=== PATIENT | male | born 1960 | race Caucasian/White ===

== ENCOUNTER 2021-11-10 12:21 | Inpatient (IN) | payer OTHER, SELFPAY ==
[2021-11-10] VITALS (17 sets, daily range): BP systolic 98–133; BP diastolic 38–57; PULSE 80–107; RESP 14–21; TEMP 36.1–36.6; O2SAT 92–100; BMI 20.3
--- NOTE | ~2021-11-10 | CT_ITS ---
EXAMINATION: CT brain wo con DATE: 11/10/2021 14:07 INDICATION: Trauma. Transient alteration of awareness. TECHNIQUE: Computed tomography (CT) of the head was performed without intravenous contrast. The mA wa s adjusted according to patient size. Iterative reconstruction technique was employed. Exam dose: 68 1.00 mGy-cm total exam DLP. COMPARISON: None FINDINGS: No intracranial mass lesion or hemorrhage or cerebrovascular accident, midline shift or mas s effect effect is detected. There is moderately prominent central and cortical cerebral atrophy. Bilateral carotid siphon internal carotid artery calcifications. There is nonspecific diminished atte nuation of the cerebral white matter, likely due to chronic small vessel ischemic changes. No subdural or epidural hematoma is detected. The mastoid air cells and paranasal sinuses are normally developed and aerated. No fracture or bone destruction of the cranial vault. IMPRESSION: Cirrhosis and chronic small vessel ischemic changes of the cerebral white matter Moderately prominent central and cortical cerebral atrophy No acute intracranial finding Reviewed, dictated and finalized at [facility]. Reviewed, dictated and finalized at location [facility]. IMPRESSION: Cirrhosis and chronic small vessel ischemic changes of the cerebra l white matter Moderately prominent central and cortical cerebral atrophy No acute intracranial finding
--- NOTE | ~2021-11-10 | XR_ITS ---
EXAM: XR abdomen NG/feed tube insert DATE: 11/10/2021 15:43 HISTORY: NG TUBE PLACEMENT . COMPARISON: CT abdomen and pelvis, same date. FINDINGS: Clear lung bases. NG tube, tip and side port projecting over the stomach. Multiple loops o f dilated small bowel. No organomegaly. No abnormal abdominal calcification. Regional bones and soft tissues normal for age. IMPRESSION: NG tube, in good position. Small bowel obstruction or ileus. Reviewed, dictated and finalized at location [facility].
--- NOTE | ~2021-11-10 | CT_ITS ---
EXAMINATION: CT chest abdomen pelvis wo con DATE: 11/10/2021 14:07 INDICATION: Abdominal pain, distention. Hernia. TECHNIQUE: Computed tomography (CT) of the chest, abdomen, and pelvis was performed without intraveno us contrast. Automated exposure control and iterative reconstruction technique were employed. Exam do se: 841.04 mGy-cm total exam DLP. COMPARISON: None FINDINGS: CHEST CT: Heart size is within normal limits. Trace pericardial fluid. There is thoracic aortic and great vessel calcification. No thoracic aortic aneurysm. No hilar or med iastinal mass lesion or lymphadenopathy. There are emphysematous changes of the lungs There is mild atelectasis at the left lung base, left lower lobe. ABDOMEN/PELVIS CT: There is prominent ascites. There appears to be surface nodularity of liver suggesting cirrhosis. Nor mal splenic size. No apparent hepatic, splenic, pancreatic, and adrenal or renal space-occupying mass lesion is evident on this limited noncontrast examination. Approximately 2 x 4 mm nonobstructing right renal calculus. No ureteral calculus or hydroureteronephr osis. The urinary bladder is unremarkable. Prostate calcification. There is a large fat and fluid containing right inguinal hernia and smaller left fat and fluid contai carli left inguinal hernia. Fluid distended umbilical hernia. Small sliding hiatal hernia. Multiple dilated small bowel loops with air-fluid levels are noted in the colon is relatively evacuat ed. Differential diagnosis includes distal small bowel obstruction versus adynamic ileus . Consider small bowel series Normal caliber and calcification of the abdominal aorta and iliac arteries. No intraperitoneal or ret roperitoneal or pelvic mass lesion or adenopathy is noted. Osteosclerotic 7.5 mm lesion of L1 vertebral body, probably a bone island considering the lack of oth er sclerotic lesions. Differential diagnosis includes osteosclerotic metastasis from prostate cancer. IMPRESSION: Cirrhosis, ascites Small bowel dilatation measuring up to 3.5 cm diameter, with air-fluid levels, suggesting distal smal l bowel obstruction or adynamic ileus. Consider small bowel series Emphysema Mild atelectasis at left lung base, left lower lobe Nonobstructing right renal calculus Fluid containing umbilical and bilateral inguinal hernias Reviewed, dictated and finalized at [facility]. Reviewed, dictated and finalized at location A. IMPRESSION: Cirrhosis, ascites Small bowel dilatation measuring up to 3.5 cm diameter, with air-fluid levels, suggesting distal small bowel obstruction or adynamic ileus. Consider small bow el series Emphysema Mild atelectasis at left lung base, left lower lobe Nonobstructing right renal calculus Fluid containing umbilical and bilateral inguinal hernias
--- NOTE | 2021-11-10 12:26 | PC.NURSE ---
1 liter NS initiated en route per EMS this RN will continue IV fluids.
--- NOTE | 2021-11-10 12:29 | ED.AMS ---
HPI - Altered Mental Status General Chief Complaint: Abdominal Pain Stated Complaint: decreased loc History of Present Illness HPI narrative: pt sent from EMS called from family normal accu check but unknown down time they thought he was just sleeping on the couch but finally went to wake him up today and sluggish to respond ? abd pain h/o hernia pt will respond but slow can't elaborate on history looks dry, soft bp for ems, has yellow tint to skin ? etoh/liver issues no other trauma or history given at scene Related Data Home Medications Medication Instructions Recorded Confirmed folic acid 1 mg tablet 1 mg PO DAILY 11/10/21 spironolactone 50 mg tablet 50 mg PO QAM 11/10/21 Allergies Allergy/AdvReac Type Severity Reaction Status Date / Time No Known Allergies Allergy Verified 11/10/21 12:41 Review of Systems Constitutional: Comments: CONSTITUTIONAL: Denies fever, chills, or sweats. EYES: Denies visual changes, redness, or discharge. ENT: Denies rhinorrhea, congestion, sore throat, or otalgia. CARDIOVASCULAR: Denies chest pain, palpitations, or edema. RESPIRATORY: Denies cough or dyspnea. GASTROINTESTINAL: Denies abdominal pain, nausea, vomiting, or diarrhea. ? pain wiht his hernia GENITOURINARY: Denies dysuria or hematuria. SKIN: Denies rash or itching. MUSCULOSKELETAL: Denies back pain, joint pain, or myalgia. NEUROLOGIC: Denies headache, numbness, or weakness. aloc PSYCHIATRIC: Denies anxiety or depression. Exam Const: Other: APPEARANCE: thin ill appearing no pain in distress Head normocephalic atraumtaic. EYES: PERRLA/EOMI, conjunctivae very clear. NOSE: Normal no drainage EARS:TMS clear Geno Pro, with good light reflex. THROAT: Pharynx clear, no exudate. dry mouth NECK: Supple. No adenopathy, no masses. RESPIRATORY: Airway patent, repsirations nonlabored. Clear to auscultation bilaterally, no rales, rhonchi, wheezing. CARDIOVASCULAR: Regular rate and rhythm without murmurs rubs or gallops. ABDOMINAL: Soft, nontender, there is distention no ascites, no hepatosplenomegally has hernia at umbilicus with crusted skin from chronic rubbing on pants no s/s infection can reduce then comes back doesnt seem tender on exam, rectal normal tone, mucus only heme positive MUSCULOSKELETAl: Moves all extremities. Strenght/ROM intact, No edema, No calf tenderness. NEURO: awake, slow to respond good gag moving all extremities but won't always follow commands no focal deficits but globally weak. Cranial nerves II through XII intact. SKIN:: Warm, dry. mild jaundice no scleral icterus and poor tugor PSYCHIATRIC: Normal affect/mood, . Course Course Emergency Course: talked to Dr Corrales feels like pt can't be managed here with all issues so trying to find placement at another facility even though we already have a pt here waiting for gi slu/[facility] no bed for days which he is aware [facility] calling back at 1532 Reevaluation(s) Reevaluation #1: [facility] at 1603 put on wait list will call back tomorrow Reevaluation #2: [facility] calling back at 1600 Reevaluation #3: [facility] beds [facility], [facility], [facility], [facility], [facility] capacity placing on wait list at 1634 Additional Reevaluation(s): pt becoming more altered calling one family number with nurse more septic progression unlikely to survive or maybe even transfer calling dr andujar says could take to gi lab when more stable call surgery so calling them here and dr sethi back b/c very unlikely will get bed anywhere else dr Lily Ryder hepatology concerned about length transfer with instability needs scope there first pts sister Tatiana Dickinson just talked with me says for some time he's been saying doesn't want to deal with all his health problems anymore and was seeing a primary care doc but she doens't know who, she is a nurse, and knownig him and his [facility] struggles with copd, etoh, liver issues wants to make him comfortable doesnt think he wo
--- NOTE | 2021-11-10 12:42 | PC.NURSE ---
Nephew that lives with pt - Livan Nielson - [phone] pt had abd pain x 1 week, seen at urgent care yesterday, covid test negative. Pt got weaker as the night went on,pt went to bed, and was unable to be woken this morning. called 911.
[2021-11-10 12:49] LABS: Alveolar/Arterial O2 Gradient 43.8 mmHg; Base Excess ABG -3.4 mEq/l (+/-2.0); Fractional Inspired Oxygen 21 %; HCO3 ABG 19.2 mEq/l (22.0-26.0); Oxygen Content ABG 6.9 %vol (16.0-22.0); Oxyhemoglobin 92.6 % THb (90.0-100.0); PO2 ABG 77.9 mmHg (80.0-100.0); PO2 FiO2 Ratio Arterial Blood 3.71 %
[2021-11-10 12:51] LABS: Device ROOM AIR; Modified Allen's Test Pass; PCO2 ABG 23.4 mmHg (35.0-45.0); Site Drawn RIGHT RADIAL; Total Hemoglobin 5.2 g/dL (12.0-18.0); pH ABG 7.531 (7.350-7.450)
[2021-11-10 12:59] LABS: Basophils Percent Auto 0.1 % (0.2-1.2); Eosinophils Absolute Auto 0.1 K/mm3 (0-0.3); Eosinophils Percent Auto 0.4 % (0-4.4); Immature Granulocyte Absolute 0.44 K/mm3 (0.00-0.031); Immature Granulocyte Percent A 1.7 % (0-0.5); Lymphocytes Absolute Auto 1.48 K/mm3 (0.9-3.2); Lymphocytes Percent Auto 5.8 % (18.3-44.2); Mean Corpuscular HGB Conc 28.5 g/dl (32-36); Mean Corpuscular Hemoglobin 22.2 pg (26-34); Mean Corpuscular Volume 77.8 fl (80-100); Mean Platelet Volume 9.2 fl (7.4-10.4); Monocytes Absolute Auto 1.9 K/mm3 (0.1-0.6); Monocytes Percent Auto 7.2 % (2.6-8.5); Neutrophils Absolute Auto 21.8 K/mm3 (1.3-6.7); Neutrophils Percent Auto 84.8 % (45.5-73.1); Nucleated Red Blood Cells Perc 0.1 % (0.0-0.2); Platelet Count Result 366 k/mm3 (150-375); Red Blood Count 2.03 M/mm3 (4.6-6.20); Red Cell Distribution Width 23.5 % (11.5-14.5); White Blood Count 25.7 K/mm3 (4.5-10.0)
[2021-11-10] MEDS: SODIUM CHLORIDE 0.9% IV 2,300 ML/1,000 ML BAG 999 ML IV CONT ×2 (13:01→13:37)
[2021-11-10 13:02] LABS: Appearance Urine Clear (Clear); Bilirubin Urine 1+ (Negative); Blood Urine Negative (Negative); Glucose Urine UA Negative (Negative); Ketones Urine Negative (Negative); Leukocyte Esterase Ur Negative LEU/UL (Negative); Nitrate Urine Negative (Negative); Protein Urine Negative (Negative); Urobilinogen Urine 0.2 mg/dL (<2.0)
[2021-11-10 13:07] LABS: Hematocrit 15.8 % (42.0-52.0); Hemoglobin 4.5 g/dL (14.0-18.0)
[2021-11-10 13:08] LABS: Add Urine Microscopic? YES; Color Urine Dark Yellow (Yellow)
[2021-11-10 13:09] LABS: INR 2.4; Prothrombin Time 25.5 Seconds (11.1-14.7)
[2021-11-10 13:09] LABS: Glucose Point of Care 110 mg/dl (65-105)
[2021-11-10 13:10] LABS: Ammonia 50 umol/L (9-30); Lactic Acid Reflex 4.1 mmol/L (0.7-2.0); Partial Thromboplastin Time 36.4 SECONDS (22.3-36.8)
[2021-11-10 13:12] LABS: Bacteria Urine Trace /hpf; Ethanol < 10 mg/dL (<10); Mucus Urine Rare /lpf; RBC Urine 0-2 /hpf (0-2); WBC Urine 0-3 /hpf
[2021-11-10 13:14] LABS: Alanine Aminotransferase 19 U/L (6-50); Albumin Level 2.4 g/dL (3.5-5.1); Alkaline Phosphatase 150 U/L (38-126); Anion Gap 11 mmol/L (8-16); Aspartate Amino Transferase 60 U/L (17-59); Bilirubin,Total 4.2 mg/dL (0.2-1.3); Blood Urea Nitrogen 23 mg/dL (9-20); CRP 4.4 mg/dL (<1.0); Calcium 6.9 mg/dL (8.4-10.2); Carbon Dioxide 19 mmol/L (22-30); Chloride 88 mmol/L (98-107); Estimated CRCL calculation 27 ml/min; Estimated Glomerular Filt Rate 23; Glucose 107 mg/dL (65-110); Potassium 4.9 mmol/L (3.4-5.0); Sodium 118 mmol/L (137-145)
[2021-11-10 13:14] LABS: Amphetamine Screen Urine Negative (Negative); Barbiturate Screen Urine Negative (Negative); Benzodiazepines Screen Urine Negative (Negative); Cannabinoid Screen Urine Negative (Negative); Cocaine Screen Urine Negative (Negative); Methadone Screen Urine Negative (Negative); Opiate Screen Urine Negative (Negative); Phencyclidine Screen Urine Negative (Negative)
[2021-11-10 13:26] LABS: Anisocytosis 2+ (NORMAL); Burr Cells 2+ (NORMAL); Hypochromasia 2+ (NORMAL); Macrocytosis 1+ (NORMAL); Platelet Estimate Adequate (Adequate); Poikilocytosis 2+ (NORMAL)
[2021-11-10 13:27] LABS: Schistocytes 1+ (NORMAL)
[2021-11-10 13:31] LABS: Magnesium 1.9 mg/dL (1.6-2.3)
[2021-11-10 13:32] LABS: Troponin I < 0.012 ng/mL (0.000-0.034)
[2021-11-10 13:36] LABS: Influenza A QL RT-PCR Negative (Negative); Influenza B QL RT-PCR Negative (Negative); SARS-CoV-2 RNA PCR Negative
[2021-11-10 14:27] LABS: Free T4 Free Thyroxine Reflex 0.99 ng/dL (0.78-2.19)
[2021-11-10] MEDS: LEVOTHYROXINE SODIUM INJ 100 MCG/5 ML VIAL 50 MCG IV PUSH (14:28)
[2021-11-10] MEDS: LACTULOSE ENEMA 200 GM/1,000 ML ENEMA RECTAL (14:30)
--- NOTE | 2021-11-10 14:38 | PC.NURSE ---
Pt contact Livan called by this RN and asked for consent of blood transfusion. Consent given and 2nd RN Suzetet verified.
--- NOTE | 2021-11-10 14:40 | ECG_ITS ---
Rate 105 OR 180 QRSd 92 QT 350 QTc 463 --[place]-- P 6 QRS 7 T 3 SINUS TACHYCARDIA CANNOT RULE OUT SEPTAL INFARCT, AGE INDETERMINATE BASELINE ARTIFACT- I, II, III, AVR, AVL, AVF, V1-V6 ABNORMAL ECG Electronically Signed On 11-13-2021 9:02:07 CDT by Bereket EDWARDS
[2021-11-10] MEDS: SODIUM CHLORIDE 0.9% IV 250 ML 30 ML IV CONT (14:50)
[2021-11-10 15:08] LABS: Total Triiodothyronine (T3) 0.43 NG/ML (0.97-1.69)
[2021-11-10] MEDS: TUBING, BLOOD PLUM PUMP TUBING 1 EACH XX (15:31)
[2021-11-10 15:52] LABS: Reflex Lactic Acid Yes or No Add Lactic
--- NOTE | 2021-11-10 16:32 | PC.NURSE ---
1513 - [facility] N/A for Liver 1515 [facility] - 5 day bed wait 1517 [facility] - N/A 1519 [facility] 1539 [facility] - N/A 1550 [facility] N/A 1552 [facility] - N/A 1614 [facility] - N/A 1620 [facility]
[2021-11-10 16:38] LABS: Lactic Acid 4.4 mmol/L (0.7-2.0)
--- NOTE | 2021-11-10 17:25 | PM.IMHP ---
H&P: HPI History of Present Illness Date/Time: Patient requires inpatient monitoring with expected length of stay to exceed 2 midnights for management of care. 11/10/21 17:25 Chief Complaint: Decreased level of consciousness Narrative: Mr. Nielson is a 60-year-old gentleman who was brought to emergency room via EMS after family called when they were unable to wake patient up. Patient was laying on the couch and the family thought that he was sleeping and then they attempted to wake him up and they were unable to do so. I am unable to obtain any type of history from patient secondary to clinical condition. Per emergency room records patient has a significant history of alcohol abuse and COPD. Patient's family states that patient had followed up with a primary care provider 1 point time, but he refused to tell them who. Upon evaluation in emergency room patient was noted to have a small-bowel obstruction NG tube was placed and patient had a large return of bloody emesis. Patient was also noted to be hyponatremic with elevated liver enzymes and elevated ammonia level. Patient was also noted to have an elevated coagulation panel. Initially patient was to be transferred to an outside facility, but after speaking with the family patient's is to be made comfort measures only. Review of Systems Review of Systems: Unable to obtain any type of review of systems from patient secondary to clinical condition patient being unresponsive. [facility] Past Medical History Medical History (Updated 11/10/21 @ 21:49 by Paty Christopher APRN) Alcohol abuse COPD (chronic obstructive pulmonary disease) Surgical History Surgical History (Updated 11/10/21 @ 21:50 by Paty Christopher APRN) Surgical history unknown Meds Home Medications and Allergies Home Medications Medication Instructions Recorded Confirmed Type folic acid 1 mg tablet 1 mg PO DAILY 11/10/21 History spironolactone 50 mg tablet 50 mg PO QAM 11/10/21 History Allergies Allergy/AdvReac Type Severity Reaction Status Date / Time No Known Allergies Allergy Verified 11/10/21 12:41 Vital Signs Vital Signs - 24 hr 11/10/21 12:16 11/10/21 13:03 11/10/21 13:32 Temperature 36.4 C L Pulse Rate 86 93 95 Respiratory Rate 19 18 18 Blood Pressure 114/46 L 107/38 L 108/42 L Pulse Oximetry 97 100 97 Oxygen Delivery Room Air 11/10/21 14:50 11/10/21 15:28 11/10/21 15:07 Temperature 36.1 C L 36.5 C Pulse Rate 107 H 104 H 104 H Respiratory Rate 21 H 20 20 Blood Pressure 133/55 L 122/45 L 101/42 L Pulse Oximetry 99 98 98 Oxygen Delivery 11/10/21 16:21 11/10/21 16:37 11/10/21 16:48 Temperature 36.6 C Pulse Rate 95 93 99 Respiratory Rate 20 19 18 Blood Pressure 116/47 L 102/45 L 107/53 L Pulse Oximetry 97 96 97 Oxygen Delivery 11/10/21 17:18 Temperature 36.2 C L Pulse Rate 93 Respiratory Rate 19 Blood Pressure 99/46 L Pulse Oximetry 96 Oxygen Delivery Exam Narrative: Constitutional: Patient is a frail-appearing 60-year-old gentleman who was unresponsive to verbal stimuli, but will respond to painful stimuli. HEENT: Moist mucous membranes. No scleral icterus. No lymphadenopathy. Patient has NG noted Neck: No carotid bruits noted no JVD noted Lungs: Lung sounds are clear to auscultation bilaterally. No accessory muscle use. No rhonchi, rales, or wheezes noted. Cardiovascular: Apical pulse is regular rate and rhythm. S1-S2 noted, no S3 or S4 noted. No gallops, murmurs, or rubs noted. Abdomen: Soft and round. No palpable masses. Extremities: No edema. Nontender. Skin: No rashes or lesions. Warm and dry. Skin is intact. Neurological: Patient is unable to follow any type of commands and unable to evaluate neurological status. H&P: Results Labs Labs: Short CBC 11/10/21 Range/Units 12:41 WBC 25.7 H (4.5-10.0) K/mm3 Hgb 4.5 L* (14.0-18.0) g/dL Hct 15.8 L* (42.0-52.0) % Plt Count 366 (150-375) k/m
[2021-11-10] MEDS: SODIUM CHLORIDE 0.9% IV 100 ML 50 ML (17:27)
[2021-11-10] MEDS: TUBING, BLOOD SET 1 EACH XX (17:27)
--- NOTE | 2021-11-10 19:15 | PC.NURSE ---
Assumed care of pt at this time. Pt upright on stretcher, responsive to painful stimuli.
--- NOTE | 2021-11-10 19:37 | PC.NURSE ---
Attempted to give report to [address] [place] [address] at this time. Receiving RN is in a pts room, will call back when available.
--- NOTE | 2021-11-10 20:20 | ADMGEN ---
This patient, Marciano Nielson, was admitted to Medical Room 346-01. Patient/family oriented to hospital policies and general routines including ID bracelet, bed and alarms, visiting hours, pain management, procedures, bathroom and other care routines, personal items, smoking policy, room service/diet, and visiting hours. Information on how to activate the Rapid Response Team has been discussed. Patient/Family are encouraged to report perceived risks to care and to ask questions if they do not understand what they are told or what they should do.
[2021-11-11] MEDS: LORazepam INJ (*CRX) 2 MG/ML VIAL 1 MG IV PUSH ×2 (00:29→11:23)
[2021-11-11] MEDS: MORPHINE SULFATE (*CRX) 2 MG/ML INJ IV PUSH ×2 (03:11→07:36)
[2021-11-11 05:30] VITALS: BP 115/55; PULSE 88; RESP 16; TEMP 36.5; O2SAT 94
--- NOTE | 2021-11-11 08:13 | PM.IMPN ---
Progress Note: A&P Assessment and Plan (1) Septic shock: Code(s): A41.9 - Sepsis, unspecified organism; R65.21 - Severe sepsis with septic shock Status: Acute (2) SBO (small bowel obstruction): Code(s): K56.609 - Unspecified intestinal obstruction, unspecified as to partial versus complete obstruction Status: Acute (3) Altered mental status: Code(s): R41.82 - Altered mental status, unspecified Status: Acute (4) GI bleed: Code(s): K92.2 - Gastrointestinal hemorrhage, unspecified Status: Acute (5) Anemia: Code(s): D64.9 - Anemia, unspecified Status: Acute (6) Acute hepatic encephalopathy: Code(s): K72.00 - Acute and subacute hepatic failure without coma Status: Acute (7) Acute renal failure (ARF): Code(s): N17.9 - Acute kidney failure, unspecified Status: Acute (8) Elevated liver enzymes: Code(s): R74.8 - Abnormal levels of other serum enzymes Status: Acute (9) Acute hyponatremia: Code(s): E87.1 - Hypo-osmolality and hyponatremia Status: Acute (10) Hypothyroidism: Code(s): E03.9 - Hypothyroidism, unspecified Status: Acute Plan Patient was found unresponsive at home and brought to emergency room for evaluation. Imaging revealed small-bowel obstruction. NG tube was placed that returned bloody emesis. He was profoundly anemic. Was tachycardic with elevated white count and lactic acidosis consistent with sepsis. Had an elevated ammonia level. Family decided not to proceed with further intervention. Patient was admitted for comfort measures. He did receive 2 units of packed red blood cell. NG tube remains in place. Discussed with family in the room. They were agreeable to hospice. Hospice consult has been placed. Family is also agreeable to starting a morphine drip. There was concern about urine retention so will place Dickinson catheter. Will continue comfort care only. Patient is DNR. Subjective Date/time seen: 11/11/21 08:13 Review of Systems Review of Systems: ROS unobtainable: Yes unobtainable due to mental status Exam Narrative: AF 97.7 115/55 88 16 94% ra Gen -thin chronically ill-appearing male lying semi recumbent HEENT -NG-tube secured with thin black fluid in tubing. Chest -lungs clear anteriorly CV -regular rate and rhythm Abd -soft. Protuberant. Umbilical hernia that is herniated outward with large black dried eschar covering the top. +BS. Rectal tube in place with light brown stool noted Ext - No pedal edema Neuro - unresponsive. moans at times Skin - dry. Multiple telangiectasias Objective Data Vital Signs Vital Signs: Vital Signs - 24 hr 11/10/21 12:16 11/10/21 13:03 11/10/21 13:32 Temperature 97.5 F L Pulse Rate 86 93 95 Respiratory Rate 19 18 18 Blood Pressure 114/46 L 107/38 L 108/42 L Pulse Oximetry 97 100 97 Oxygen Delivery Room Air 11/10/21 14:50 11/10/21 15:28 11/10/21 15:07 Temperature 97 F L 97.7 F Pulse Rate 107 H 104 H 104 H Respiratory Rate 21 H 20 20 Blood Pressure 133/55 L 122/45 L 101/42 L Pulse Oximetry 99 98 98 Oxygen Delivery 11/10/21 16:21 11/10/21 16:37 11/10/21 16:48 Temperature 97.8 F Pulse Rate 95 93 99 Respiratory Rate 20 19 18 Blood Pressure 116/47 L 102/45 L 107/53 L Pulse Oximetry 97 96 97 Oxygen Delivery 11/10/21 17:18 11/10/21 17:34 11/10/21 17:34 Temperature 97.1 F L 97.2 F L 97.2 F L Pulse Rate 93 81 92 Respiratory Rate 19 18 18 Blood Pressure 99/46 L 116/53 L 101/52 L Pulse Oximetry 96 98 98 Oxygen Delivery 11/10/21 17:54 11/10/21 18:20 11/10/21 19:20 Temperature 97.2 F L Pulse Rate 91 87 Respiratory Rate 20 17 Blood Pressure 116/53 L 115/50 L 122/57 L Pulse Oximetry 98 98 Oxygen Delivery 11/10/21 19:35 11/10/21 20:54 11/11/21 05:30 Temperature 97.8 F 97.7 F Pulse Rate 87 80 88 Respiratory Rate 18 14 16 Blood Pressure 111/56 L 98/56 L 115/55 L Puls
[2021-11-11] MEDS: MORPHINE SULFATE INJ (*CRX) 50 MG in SODIUM CHLORIDE 0.9% IV 95 ML IV CONT (09:22)
[2021-11-11 15:30] VITALS: BP 109/49; PULSE 94; RESP 16; TEMP 35.8; O2SAT 90
--- NOTE | 2021-11-11 16:17 | PM.DS ---
DS: Admitting Diagnosis Discharge Date 11/11/21 Admitting Diagnosis Unresponsive DS: Discharge Diagnosis Discharge Diagnosis (1) Septic shock: Code(s): A41.9 - Sepsis, unspecified organism; R65.21 - Severe sepsis with septic shock Status: Acute (2) SBO (small bowel obstruction): Code(s): K56.609 - Unspecified intestinal obstruction, unspecified as to partial versus complete obstruction Status: Acute (3) Altered mental status: Code(s): R41.82 - Altered mental status, unspecified Status: Acute (4) GI bleed: Code(s): K92.2 - Gastrointestinal hemorrhage, unspecified Status: Acute (5) Anemia: Code(s): D64.9 - Anemia, unspecified Status: Acute (6) Acute hepatic encephalopathy: Code(s): K72.00 - Acute and subacute hepatic failure without coma Status: Acute (7) Acute renal failure (ARF): Code(s): N17.9 - Acute kidney failure, unspecified Status: Acute (8) Elevated liver enzymes: Code(s): R74.8 - Abnormal levels of other serum enzymes Status: Acute (9) Acute hyponatremia: Code(s): E87.1 - Hypo-osmolality and hyponatremia Status: Acute (10) Hypothyroidism: Code(s): E03.9 - Hypothyroidism, unspecified Status: Acute DS: Summary Hospital Course Reason for hospitalization: 60yo male with alcohol abuse and COPD brought in to the ED after being found unresponsive. Please see H&P for details. Hospital Course: Patient was found unresponsive at home and brought to emergency room for evaluation. Imaging revealed small-bowel obstruction and cirrhosis with ascites. NG tube was placed that returned bloody emesis. He was profoundly anemic. Was tachycardic with elevated white count and lactic acidosis consistent with sepsis. Had an elevated ammonia level. Family decided not to proceed with further intervention. Patient was admitted for comfort measures. He did receive 2 units of packed red blood cell. NG tube remains in place. Discussed with family in the room. They were agreeable to hospice. Hospice consult was placed. Family was also agreeable to starting a morphine drip which was done. Patient is DNR. Patient transferred to hospice care on 11/11/21. Status at Discharge Cognitive/behavioral status at discharge: Critical Time Spent with Patient Time attestation: Total time spent providing and/or coordinating discharge services: 34 minutes Time spent: Greater than 30 minutes Exam Narrative: AF 97.7 115/55 88 16 94% ra Gen -thin chronically ill-appearing male lying semi recumbent HEENT -NG-tube secured with thin black fluid in tubing. Chest -lungs clear anteriorly CV -regular rate and rhythm Abd -soft. Protuberant. Umbilical hernia that is herniated outward with large black dried eschar covering the top. +BS. Rectal tube in place with light brown stool noted Ext - No pedal edema Neuro - unresponsive. moans at times Skin - dry. Multiple telangiectasias DS: Data Data Completed and Pending Labs on day of discharge: Labs from last 24 hours 11/10/21 11/10/21 16:18 13:19 Lactic Acid 4.4 H* Blood Type A Positive Antibody Screen Negative Crossmatch See Detail Preliminary micro results at discharge 11/10/21 12:41 Blood Culture - Preliminary Blood 11/10/21 12:41 Blood Culture - Preliminary Blood Discharge Plan Discharge Attending physician on discharge: Clemente Arevalo Discharging Clinician: Clemente Arevalo Anticipated Discharge Date/Time: 11/11/21 16:21 Patient Disposition: Hospice - Medical Facility Activity: as tolerated Diet: as tolerated Stand Alone Forms: General Discharge Information Discharge Medications: No Action folic acid 1 mg Tablet 1 mg PO DAILY spironolactone 50 mg Tablet 50 mg PO QAM Date of admission: 11/10/21 17:58 Primary Care Provider: UNKNOWN,DOCTOR Admitting Provider: Alexander
[2021-11-13 14:24] LABS: Glucose Point of Care 128 mg/dl (65-105)
== END 2021-11-11 16:46 | disposition hospice, inpatient (51) | DRG 871 ==
LOC: ANHED 17:57 → ANH3MED 18:47
PROVIDERS: Admitting Provider Internal Medicine; Emergency Provider Emergency Medicine; Visit Provider Internal Medicine
DX: A41.9 Sepsis, unspecified organism (principal); K72.00 Acute and subacute hepatic failure without coma; R65.21 Severe sepsis with septic shock; K92.2 Gastrointestinal hemorrhage, unspecified; E87.1 Hypo-osmolality and hyponatremia; K56.609 Unspecified intestinal obstruction, unspecified as to partial versus complete obstruction; N17.9 Acute kidney failure, unspecified; R18.8 Other ascites; R41.82 Altered mental status, unspecified; Z20.822 Contact with and (suspected) exposure to COVID-19; J44.9 Chronic obstructive pulmonary disease, unspecified; Z66 Do not resuscitate; D64.9 Anemia, unspecified; E03.9 Hypothyroidism, unspecified; Z79.899 Other long term (current) drug therapy; Z51.5 Encounter for palliative care; K74.60 Unspecified cirrhosis of liver
CPT/HCPCS: 36415; 36430; 36600; 51701; 70450; 71250; 74176; 80053; 80307; 81001; 82140; 82805; 82948; 83605; 83735; 84439; 84443; 84480; 84484; 85025; 85610; 85730; 86140; 86850; 86900; 86901; 86920; 87040; 87502; 93005; 96361; 96365; 96367; 96375; 99291; A9270; C9113; C9803; J0692; J2060; J2270; J3370; J7030; J7040; J7050; J7060; P9016; U0003; U0005

== ENCOUNTER 2021-11-11 14:15 | HOS | payer OTHER, SELFPAY ==
[2021-11-11 17:32] VITALS: BP 109/49; PULSE 94; RESP 16; TEMP 35.8; O2SAT 90; BMI 20.3
[2021-11-11 17:40] VITALS: BMI 20.3
[2021-11-11] MEDS: MORPHINE SULFATE INJ (*CRX) 50 MG in SODIUM CHLORIDE 0.9% IV 95 ML IV CONT (17:50)
[2021-11-11 20:00] VITALS: PULSE 100; RESP 18; O2SAT 89
[2021-11-11 20:11] VITALS: BP 119/57; PULSE 100; RESP 18; TEMP 37.1; O2SAT 89
[2021-11-11] MEDS: ARTIFICIAL TEARS OPHTH SOLN 15 ML BOTTLE 1 DROP EACH EYE (21:52)
--- NOTE | 2021-11-12 17:03 | P.HP_ITS ---
H&P: HPI History of Present Illness Date/Time: 11/12/21 17:03 Chief Complaint: Uncontrolled dyspnea and restlessness Narrative: This gentleman was found unresponsive at home brought the emergency room where he was found to have upper gastrointestinal bleeding. He was transfused 2 units packed cells. His ammonia levels elevated. Due to underlying known cirrhosis and shock suspected due to sepsis related to bowel obstruction for which the patient was not a surgical candidate family opted for comfort care only on inpatient hospice service. Review of Systems Review of Systems: ROS unobtainable: Yes unobtainable due to medical condition PMFSH Past Medical History Medical History Alcohol abuse COPD (chronic obstructive pulmonary disease) Surgical History Surgical History Surgical history unknown Family History Family History (Updated 11/12/21 @ 17:31 by Apolinar Vargas MD) Father No problems noted. Mother No problems noted. Social History Social History (Updated 11/12/21 @ 17:32 by Apolinar Vargas MD) Smoking status: Unknown if ever smoked Meds Home Medications and Allergies Home Medications Medication Instructions Recorded Confirmed Type folic acid 1 mg tablet 1 mg PO DAILY 11/10/21 11/11/21 History spironolactone 50 mg tablet 50 mg PO QAM 11/10/21 11/11/21 History Allergies Allergy/AdvReac Type Severity Reaction Status Date / Time No Known Allergies Allergy Verified 11/11/21 04:22 Vital Signs Vital Signs - 24 hr 11/11/21 17:32 11/11/21 20:11 11/11/21 20:00 Temperature 96.5 F L 98.8 F Pulse Rate 94 100 100 Respiratory Rate 16 18 18 Blood Pressure 109/49 L 119/57 L Pulse Oximetry 90 89 L 89 L Oxygen Delivery Room Air Exam Narrative: Patient prior to being examined by me Assessment and Plan Assessment and plan (1) Palliative care by specialist: Code(s): Z51.5 - Encounter for palliative care Status: Acute Assessment and Plan: * Met inpatient hospice criteria admission due to requiring continuous IV morphine for control discomfort and restlessness and dyspnea (2) Septic shock: Code(s): A41.9 - Sepsis, unspecified organism; R65.21 - Severe sepsis with septic shock Status: Acute (3) GI bleed: Code(s): K92.2 - Gastrointestinal hemorrhage, unspecified Status: Acute (4) Anemia: Code(s): D64.9 - Anemia, unspecified Status: Acute (5) Acute hepatic encephalopathy: Code(s): K72.00 - Acute and subacute hepatic failure without coma Status: Acute (6) Acute renal failure (ARF): Code(s): N17.9 - Acute kidney failure, unspecified Status: Acute (7) Acute hyponatremia: Code(s): E87.1 - Hypo-osmolality and hyponatremia Status: Acute (8) SBO (small bowel obstruction): Code(s): K56.609 - Unspecified intestinal obstruction, unspecified as to partial versus complete obstruction Status: Acute
--- NOTE | 2021-11-12 17:03 | PM.DDS ---
Discharge Summary Date and Time Date of : 11/12/21 Time of : 03:00 Provider Pronounced By: Rachel Mei RN Probable Cause of Probable Cause of : Septic shock possibly due to underlying small-bowel obstruction with concurrent upper GI bleeding, profound anemia, hepatic cirrhosis, and acute kidney injury Summary Hospital Course: Mr. Nielson was admitted to inpatient hospice service. Medications were titrated to comfort. He peacefully. Additional Data Confirmation of as documented by pronouncing clinician: Pupillary Reflex, Palpable Pulses, Response to Stimuli, Heart Tones and Breath Sounds Name of Provider Notified: Dr. Apolinar Vargas Time Provider Notified: 03:23 Provider Requests Autopsy: No Family Requests Autopsy: No (Family declines.) Computer Systems Analyst Notified: Yes Date [facility] Notified of : 11/12/21 Time [facility] Notified of : 03:36
== END 2021-11-12 05:11 | disposition expired | DRG 951 ==
PROVIDERS: Admitting Provider Internal Medicine; Visit Provider Internal Medicine
DX: Z51.5 Encounter for palliative care (principal); A41.9 Sepsis, unspecified organism; R65.21 Severe sepsis with septic shock; K72.00 Acute and subacute hepatic failure without coma; N17.9 Acute kidney failure, unspecified; K92.2 Gastrointestinal hemorrhage, unspecified; K56.609 Unspecified intestinal obstruction, unspecified as to partial versus complete obstruction; E87.1 Hypo-osmolality and hyponatremia; D64.9 Anemia, unspecified; K74.60 Unspecified cirrhosis of liver; J44.9 Chronic obstructive pulmonary disease, unspecified
CPT/HCPCS: A9270; J2270